=== PATIENT | female | born 1945 | race Two or more races ===

== ENCOUNTER 2024-07-04 18:33 | Emergency (ER) | payer OTHER ==
[2024-07-04 18:42] VITALS: BP 124/66; PULSE 69; RESP 18; TEMP 98.7; BMI 24.8
[2024-07-04] MEDS: SODIUM CHLORIDE 0.9% 500 ML INFUS.BAG IV ONE (20:30)
[2024-07-04 20:39] LABS: HEMATOCRIT 37.5 % (32.4-45.2); HEMOGLOBIN 12.7 GM/dL (10.7-15.3); MEAN CELL VOLUME 79.3 fl (80-96); MEAN PLT VOLUME 8.7 fl (7.5-11.1); PLATELET COUNT 197 10^3/uL (134-434); RBC 4.73 M/mm3 (3.60-5.2); RDW 13.8 % (11.6-15.6); WHITE BLOOD COUNT 6.3 K/mm3 (4.0-10.0)
[2024-07-04 20:54] LABS: PH,URINE 7.5 (5.0-8.0); URINE APPEARANCE CLEAR; URINE BILIRUBIN NEGATIVE (NEGATIVE); URINE COLOR YELLOW; URINE GLUCOSE (UA) NEGATIVE (NEGATIVE); URINE KETONE NEGATIVE (NEGATIVE); URINE LEUK ESTERASE NEGATIVE (NEGATIVE); URINE NITRITE NEGATIVE (NEGATIVE); URINE PROTEIN NEGATIVE (NEGATIVE); URINE UROBILINOGEN 0.2 mg/dL (0.2-1.0)
[2024-07-04 20:56] LABS: POTASSIUM 3.2 mmol/L (3.5-5.1)
[2024-07-04 20:59] LABS: CALCIUM 9.5 mg/dL (8.5-10.1)
[2024-07-04 21:00] LABS: ALBUMIN 3.5 g/dl (3.4-5.0); BLOOD UREA NITROGEN 17.5 mg/dL (7-18); MAGNESIUM 2.1 mg/dL (1.8-2.4)
[2024-07-04 21:03] LABS: CREATININE 0.9 mg/dL (0.55-1.3)
[2024-07-04 21:04] LABS: LACTIC ACID 2.1 mmol/L (0.4-2.0)
[2024-07-04 21:05] LABS: BILIRUBIN,TOTAL 0.4 mg/dL (0.2-1); TOT PROT 7.1 g/dl (6.4-8.2)
[2024-07-04 21:27] LABS: ANISOCYTOSIS 1+; MACROCYTOSIS 1+
[2024-07-04 21:28] LABS: NEUT % 3.7 % (42.8-82.8)
[2024-07-04 22:27] LABS: CALCIUM 8.9 mg/dL (8.5-10.1)
[2024-07-04 22:28] LABS: ALBUMIN 3.4 g/dl (3.4-5.0); BLOOD UREA NITROGEN 16.1 mg/dL (7-18)
[2024-07-04 22:31] LABS: CREATININE 0.8 mg/dL (0.55-1.3)
[2024-07-04 22:32] LABS: BILIRUBIN,TOTAL 0.3 mg/dL (0.2-1); TOT PROT 6.9 g/dl (6.4-8.2)
[2024-07-04] MEDS: POTASSIUM CHLORIDE ORAL LIQUID 20 MEQ/15 ML PO ONE ×2 (22:43→22:55)
[2024-07-04] MEDS ORDERED: POTASSIUM CHLORIDE ORAL LIQUID 20 MEQ/15 ML ONE (22:53)
[2024-07-04] MEDS: OSELTAMIVIR PHOSPHATE 75 MG CAPSULE PO ONE (22:55)
== END 2024-07-04 23:15 | disposition home or self-care (01) ==
LOC: JER 18:33
DX: J10.1 Influenza due to other identified influenza virus with other respiratory manifestations (principal); E87.6 Hypokalemia; R55 Syncope and collapse; R05.9 Cough, unspecified; R09.81 Nasal congestion; Z20.822 Contact with and (suspected) exposure to COVID-19
CPT/HCPCS: 0241U-QW; 36415; 71046-TC-FY; 80053; 81003; 83605; 83735; 84484; 85025; 87086; 93005; 93010; 99285-25